=== PATIENT | female | born 1990 | race Caucasian/White ===

== ENCOUNTER 2020-01-06 05:24 | Emergency (ER) | payer SELFPAY | END 2020-01-06 05:40 | disposition left against medical advice (07) | LOC: ER 05:24 | DX: Z53.21 Procedure and treatment not carried out due to patient leaving prior to being seen by health care provider (principal) ==

== ENCOUNTER 2021-12-21 20:14 | Emergency (ER) | payer SELFPAY ==
[~2021-12-21] VITALS: Ht 162.6 cm; Wt 77.0 kg
[2021-12-21 20:21] VITALS: BP 105/77
[2021-12-21 22:54] LABS: CHLORIDE 104 mEq/L (98-107)
== END 2021-12-21 20:40 | disposition left against medical advice (07) ==
LOC: ER 20:14
DX: Z53.21 Procedure and treatment not carried out due to patient leaving prior to being seen by health care provider (principal); R10.84 Generalized abdominal pain; R11.2 Nausea with vomiting, unspecified
CPT/HCPCS: 36415; 80053